=== PATIENT | male | born 1960 | race American Indian/Alaskan Native ===

== ENCOUNTER 2025-05-27 18:49 | Emergency (ER) | payer MEDICAID, OTHER ==
[2025-05-27] MEDS: Acetaminophen/HYDROcodone 325-5 MG Tab PO ONE (19:52)
== END 2025-05-27 20:25 | disposition home or self-care (01) ==
LOC: EDBD 18:49 → DL.ED 18:49
DX: M25.462 Effusion, left knee (principal)
CPT/HCPCS: 99283; A9270